=== PATIENT | female | born 1955 | race Caucasian/White ===

== ENCOUNTER 2020-04-21 11:40 | Observation (INO) | payer BC ==
[2020-04-21] MEDS ORDERED: Bisacodyl 10 MG SUPP PR PRN (12:11)
[2020-04-21] MEDS ORDERED: Nitroglycerin 0.4 MG TAB (25 Tab Bottle) SL PRN (12:11)
[2020-04-21] MEDS ORDERED: HYDROcodone/Acetaminophen 5/325 mg Tablet PO PRN (12:11)
[2020-04-21] MEDS ORDERED: Ondansetron PF 4 MG/2 ML Vial IVP PRN (12:11)
[2020-04-21] MEDS ORDERED: Acetaminophen 325 MG TAB PO PRN (12:11)
[2020-04-21] MEDS ORDERED: Senokot S 8.6-50 MG TAB PO PRN (12:11)
[2020-04-21] MEDS ORDERED: Guaifenesin DM 100-10/5 ML UDCUP PO PRN (12:11)
[2020-04-21 13:27] LABS: Troponin I Less than 0.010 ng/mL (< 0.028)
--- NOTE | 2020-04-21 15:56 | HP ---
REASON FOR ADMISSION: Chest pain. HISTORY OF PRESENT ILLNESS: The patient gives history of waking up in the middle of the night with palpitations for the last month or so. She also developed left lower chest area pain yesterday after having a heavy Thanksgiving meal that is day before. This lasted for an hour or so. She got better after she lay down for a few minutes. The patient has been checking her blood pressure ever since and it has always been on the higher side. The first time she checked was 180/116. The patient also developed some left-sided neck pain and jaw tightness this morning. This prompted her to come to the emergency room. She has had some tingling and numbness in the back of her neck and between her shoulder blades. She has had prior history of C1 fracture years ago and has seen Dr. Jernigan. No complaints of cough or fever. No exposure to COVID as far as she knows. PAST MEDICAL AND SURGICAL HISTORY: History of C1 vertebra fracture, tonsillectomy, tubal ligation. No prior cardiac workup as far as she knows. CURRENT MEDICATIONS: Takes Prempro for menopausal symptoms. ALLERGIES: NO KNOWN DRUG ALLERGIES. PERSONAL HISTORY: Does not abuse alcohol or drugs. No history of smoking. Lives with her . FAMILY HISTORY: Mother of lung cancer at the age of 76, was a heavy smoker as well. Father at the age of 87. She has had history of hypertension, dyslipidemia, aortic aneurysm, and COPD. CODE STATUS: Full. Power of bankruptcy attorney is her . REVIEW OF SYSTEMS: CONSTITUTIONAL: Negative for weight loss or gain, ability to conduct usual activities. SKIN: Negative for rash, itching. EYES: Negative for double vision, pain. ENT/MOUTH: Negative for nose bleeding, neck stiffness, pain, tenderness. CARDIOVASCULAR: Negative for palpitations, dyspnea on exertion, orthopnea. RESPIRATORY: Negative for shortness of breath, wheezing, cough, hemoptysis, fever or night sweats. GASTROINTESTINAL: Negative for poor appetite, abdominal pain, heartburn, nausea, vomiting, constipation, or diarrhea. GENITOURINARY: Negative for urgency, frequency, dysuria, nocturia. MUSCULOSKELETAL: Negative for pain, swelling. NEUROLOGIC/PSYCHIATRIC: Negative for anxiety, depression. ALLERGY/IMMUNOLOGIC: Negative for skin rash, bleeding tendency. PHYSICAL EXAMINATION: GENERAL: The patient is a 65-year-old female, who is currently not in any acute distress. VITAL SIGNS: Blood pressure 158/98, pulse 74 per minute, respiratory rate 18 per minute, temperature 98 degrees Fahrenheit, saturating 99% on room air. NECK: Supple. No elevated JVD. HEENT: Eyes; extraocular muscles intact. Pupils reacting to light. Oral cavity, mucous membranes are moist. No exudates or congestion. CARDIOVASCULAR SYSTEM: S1 and S2 heard. Regular rhythm. RESPIRATORY SYSTEM: Air entry 2+ bilateral. No rales or rhonchi. ABDOMEN: Soft. Bowel sounds heard. No tenderness, rigidity, or guarding. EXTREMITIES: No peripheral edema or calf tenderness. VASCULAR SYSTEM: Peripheral pulses 2+ bilateral. No ischemic ulcers or gangrene. CENTRAL NERVOUS SYSTEM: No gross focal motor deficits noted. The patient is alert, awake, oriented well. PSYCHIATRIC SYSTEM: The patient's mood is euthymic. No hallucinations or delusions. LABORATORY DATA: EKG done shows normal sinus rhythm at 81 beats per minute. H and H 14 and 43, platelet count is 257, MCV is 93. BUN 11, creatinine 0.8. Troponin x2 negative. BNP 43. Albumin is 4.6. CLINICAL IMPRESSION AND PLAN: The patient will be placed under observation on telemetry for chest pain, rule out acute coronary syndrome. We will obtain nuclear stress test. She will be on aspirin. We will place her on low-dose Lopressor 25 mg twice daily. If her stress test comes back negative, the patient will be discharged home. Her posterior neck pain with tingling, numbness, and radiation of this pain between shoulder blades likely is due to cervical disk disease and she is already established with Dr. Jernigan and we will make outpatient appointment to see him. I have given complete updates to her and her at bedside. Job ID: [id number]
[2020-04-21 16:02] VITALS: BMI 28.9
[2020-04-21] MEDS ORDERED: FLU VACC QS2020-21(6MOS UP)/PF 60 MCG/0.5 ML SYRINGE IM ONE (16:30)
[2020-04-21 17:13] LABS: Troponin I 0.016 ng/mL (< 0.028)
[2020-04-21] MEDS: Famotidine 20 MG TAB PO SCH (20:51)
[2020-04-21] MEDS: Metoprolol Tartrate 25 MG TAB PO SCH (20:51)
[2020-04-22 04:35] LABS: #Basophils 0.1 thou/uL (0.0-0.2); #Eosinphils 0.1 thou/uL (0.0-0.7); #Lymphocytes 2.6 thou/uL (1.20-3.40); #Monocytes 0.5 thou/uL (0.11-0.59); #Neutrophils 2.9 thou/uL (1.40-6.50); %Basophils 0.8 % (0.0-1.0); %Eosinophils 1.3 % (0.0-10.0); %Lymphocytes 42.3 % (21.0-51.0); %Monocytes 8.2 % (0.0-10.0); %Neutrophils 47.4 % (42.0-75.0); Hemoglobin 12.9 g/dL (12.0-16.0); Mean Corpuscular HGB CONC 33.9 g/dL (32.0-36.0); Mean Corpuscular Hemoglobin 31.9 pg (27.0-31.0); Mean Platelet Volume 8.4 fL (7.4-10.4); Platelet Count 260 thou/uL (130-400); RBC Distribution Width 10.9 % (11.5-14.5); Red Blood Cell (RBC) Count 4.03 mill/uL (4.20-5.40); White Blood Cell (WBC) Count 6.1 thou/uL (4.8-10.8)
[2020-04-22 05:03] LABS: Anion Gap 11 mmol/L (10-20); BUN (Urea Nitrogen) 10 mg/dL (9.8-20.1); Calc. Creatinine Clearance 88 mL/min (70-130); Carbon Dioxide 25 mmol/L (23-31); Cardiac Risk 3.7 (Less than 4.5); Chloride 105 mmol/L (98-107); Cholesterol 197 mg/dl (< 200 Desired); Estimated GFR-MDRD 79; Glucose 99 mg/dL (80-115); HDL Cholesterol 53 mg/dL (>60 Neg Risk); LDL Cholesterol, Calculated 111 mg/dL; Potassium 4.1 mmol/L (3.5-5.1); Sodium 137 mmol/L (136-145); Triglycerides 167 mg/dL (Less than 150)
[2020-04-22] MEDS ORDERED: Aspirin 325 mg Enteric Coated Tablet PO SCH (09:00)
[2020-04-22] MEDS ORDERED: Enoxaparin Sodium 40 MG/0.4 ML SYRINGE SC SCH (09:00)
--- NOTE | 2020-04-22 10:53 | NM ---
NUCLEAR MEDICINE CARDIAC MYOCARDIAL PERFUSION SPECT EJECTION FRACTION STUDY WALL MOTION CINE: DATE: 04/22/2020 HISTORY: 65-year-old female presents with chest pain TECHNIQUE: Number of days: 1 Rest study: Technetium 99m-sestamibi (Cardiolite) dose: 9.4 mCi Pharmacologic stress: Adenosine dose: 39.2 mg Stress study: Technetium 99m-sestamibi (Cardiolite) dose: 27.0 mCi FINDINGS: CARDIAC (MYOCARDIAL PERFUSION) SPECT Distribution of sestamibi is homogeneous throughout the left ventricle, with no fixed or reversible m yocardial perfusion defects. EJECTION FRACTION STUDY Left ventricular EF = 79 % WALL MOTION CINE The left ventricular wall motion is normal. There is normal systolic wall thickening. IMPRESSION: Normal.
[2020-04-22] MEDS ORDERED: ADENOSINE 60 MG/20 ML VIAL ONE (11:04)
[2020-04-22 11:41] VITALS: BP 118/64; TEMP 97.5
[2020-04-22] MEDS: Metoprolol Tartrate 25 MG TAB PO SCH (11:45)
[2020-04-22] MEDS: Famotidine 20 MG TAB PO SCH (11:45)
--- NOTE | 2020-04-27 15:05 | EKG ---
Test Reason : Blood Pressure : / mmHG Vent. Rate : 081 BPM Atrial Rate : 081 BPM P-R Int : 162 ms QRS Dur : 074 ms QT Int : 384 ms P-R-T Axes : 066 028 016 degrees QTc Int : 446 ms Normal sinus rhythm Possible Left atrial enlargement Abnormal ECG Confirmed by ERIC PARKS M.D. ([id number]), editorial manager MONSERRAT ELLISON ([id number] on 04/27/2020 3:05:05 PM Referred By: Confirmed By:ERIC PARKS M.D.
== END 2020-04-22 14:10 | disposition home or self-care (01) ==
LOC: ERS 11:40 → ERHOLD 12:40 → 2NO 15:52
PROVIDERS: ADMIT Internal Medicine; ATTEND Internal Medicine
DX: R07.9 Chest pain, unspecified (principal); R00.2 Palpitations; I10 Essential (primary) hypertension; Z79.899 Other long term (current) drug therapy
CPT/HCPCS: 36415; 78452; 80048; 80061; 85025; 90471; 90662; 93005; 93017; 94760; A9500; G0008; G0378; J0153

== ENCOUNTER 2021-04-20 11:34 | Inpatient (IN) | payer BC ==
[2021-04-20 13:35] VITALS: BMI 27.2
[2021-04-20 13:46] LABS: Troponin I Less than 0.010 ng/mL (< 0.028)
[2021-04-20 15:55] LABS: SARS-CoV-2 PCR by NAA Not Detected (NotDetected)
[2021-04-20] MEDS ORDERED: Acetaminophen 325 MG TAB PO PRN (16:19)
[2021-04-20] MEDS ORDERED: hydrALAZINE 20 MG/ML VIAL SLOW IVP PRN (16:19)
[2021-04-20 17:02] LABS: Troponin I Less than 0.010 ng/mL (< 0.028)
[2021-04-21 06:38] LABS: #Eosinphils 0.1 thou/uL (0.0-0.7); #Monocytes 0.4 thou/uL (0.11-0.59); #Neutrophils 2.1 thou/uL (1.40-6.50); %Basophils 0.9 % (0.0-1.0); %Eosinophils 1.4 % (0.0-10.0); %Lymphocytes 43.4 % (21.0-51.0); %Monocytes 8.9 % (0.0-10.0); %Neutrophils 45.4 % (42.0-75.0); Hemoglobin 13.6 g/dL (12.0-16.0); Mean Corpuscular HGB CONC 34.4 g/dL (32.0-36.0); Mean Corpuscular Hemoglobin 32.9 pg (27.0-31.0); Mean Corpuscular Volume 95.7 fL (78.0-98.0); Mean Platelet Volume 8.3 fL (7.4-10.4); Platelet Count 238 thou/uL (130-400); RBC Distribution Width 11.5 % (11.5-14.5); Red Blood Cell (RBC) Count 4.14 mill/uL (4.20-5.40); White Blood Cell (WBC) Count 4.7 thou/uL (4.8-10.8)
[2021-04-21 07:02] LABS: Anion Gap 9 mmol/L (10-20); BUN (Urea Nitrogen) 13 mg/dL (9.8-20.1); Calc. Creatinine Clearance 79 mL/min (70-130); Calcium 9.4 mg/dL (7.8-10.44); Carbon Dioxide 26 mmol/L (23-31); Cardiac Risk 3.7 (Less than 4.5); Chloride 105 mmol/L (98-107); Cholesterol 206 mg/dl (< 200 Desired); Glucose 99 mg/dL (80-115); HDL Cholesterol 55 mg/dL (>60 Neg Risk); LDL Cholesterol, Calculated 127 mg/dL; Potassium 4.2 mmol/L (3.5-5.1); Sodium 136 mmol/L (136-145); Triglycerides 119 mg/dL (Less than 150)
[2021-04-21] MEDS ORDERED: Aspirin 81 mg Enteric Coated Tablet PO SCH (09:00)
[2021-04-21 12:07] VITALS: TEMP 97.9
[2021-04-21 16:14] VITALS: BP 124/72
== END 2021-04-21 16:58 | disposition home or self-care (01) | DRG 69 ==
LOC: NEURO 12:46 → OBSVTOIN 04-21 15:58
PROVIDERS: ADMIT Internal Medicine; ATTEND Internal Medicine
DX: G45.9 Transient cerebral ischemic attack, unspecified (principal); H53.9 Unspecified visual disturbance; Z20.822 Contact with and (suspected) exposure to COVID-19; R20.0 Anesthesia of skin; I10 Essential (primary) hypertension; Z90.89 Acquired absence of other organs; Z98.51 Tubal ligation status; Z98.890 Other specified postprocedural states
CPT/HCPCS: 36415; 36416; 70551; 80048; 80061; 85025; 85652; 86140; 93306; 93880; G0378; U0003; U0005